=== PATIENT | male | born 1995 | race American Indian/Alaskan Native ===

== ENCOUNTER 2017-12-13 19:50 | Emergency (ER) | payer OTHER ==
[2017-12-13] MEDS ORDERED: TYLENOL ONE (20:16)
[2017-12-13] MEDS ORDERED: TYLENOL PO ONE (20:20)
[2017-12-14 05:56] VITALS: BP 105/63
== END 2017-12-14 08:00 | disposition left against medical advice (07) ==
LOC: ED 19:50
DX: M54.6 Pain in thoracic spine (principal); V49.09XA Driver injured in collision with other motor vehicles in nontraffic accident, initial encounter; Y93.89 Activity, other specified; Y99.8 Other external cause status; Y92.488 Other paved roadways as the place of occurrence of the external cause; Z53.21 Procedure and treatment not carried out due to patient leaving prior to being seen by health care provider

== ENCOUNTER 2017-12-14 10:35 | Emergency (ER) | payer OTHER ==
[2017-12-14 10:43] VITALS: BP 116/58
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
== END 2017-12-14 11:36 | disposition home or self-care (01) ==
LOC: ED 10:35
DX: S39.012A Strain of muscle, fascia and tendon of lower back, initial encounter (principal); V49.49XA Driver injured in collision with other motor vehicles in traffic accident, initial encounter; Y93.89 Activity, other specified; Y99.8 Other external cause status; Y92.488 Other paved roadways as the place of occurrence of the external cause
CPT/HCPCS: 99282